=== PATIENT | male | born 1990 | race Caucasian/White ===

== ENCOUNTER 2025-09-05 15:37 | Emergency (ER) | payer OTHER, SELFPAY ==
--- NOTE | ~2025-09-05 | XR_ITS ---
EXAMINATION: XR foot RT min 3V DATE: 09/05/2025 16:02 INDICATION: Pain. Trauma today. TECHNIQUE: 4 views of right foot were obtained. COMPARISON: None. FINDINGS: No acute fracture or dislocation are seen. Normal alignment of the bones in the forefoot and midfoot. Soft tissues are unremarkable. IMPRESSION: 1. No acute bony lesions in the right foot. Symptoms persist repeat radiograph is suggested after a few days. Reviewed, dictated and finalized at location [facility] [employer]
[2025-09-05 15:51] VITALS: BP 128/62; PULSE 66; RESP 18; TEMP 36.8; O2SAT 100
--- NOTE | 2025-09-05 16:09 | ED.LOWEXIN ---
HPI - Extremity Injury (Lower) General Chief Complaint: Extremity Injury, Lower Stated Complaint: R Foot patient presents to the [facility] with complaints of pain to the top of right foot that began after accidentally running into the wall with his toes. No medication remedies attempted for symptoms. Increased pain with movement and weight-bearing. Denies numbness or tingling in foot or toes. Related Data Home Medications ?Medication ?Instructions ?Recorded ?Confirmed ?Last Taken ?Type No Home Medications 09/05/25 09/05/25 Unknown History Allergies Allergy/AdvReac Type Severity Reaction Status Date / Time No Known Allergies Allergy Verified 09/05/25 15:52 Review of Systems Constitutional: Constitutional: Reports as per HPI, Denies chills, Denies fatigue, Denies fever(s) and Denies weakness Eyes: Eyes: Reports no additional eye complaints ENT: Reports system reviewed and no additional complaints, except as documented Cardiovascular: Cardiovascular: Reports no additional cardiovascular complaints Respiratory: Respiratory: Reports no additional respiratory complaints Gastrointestinal: Gastrointestinal: Reports no additional gastrointestinal complaints Genitourinary: Genitourinary: Reports no additional male genitourinary complaints Musculoskeletal: Musculoskeletal: Reports as per HPI, Reports arthralgias, Denies joint swelling and Denies muscle cramps Integumentary/Breasts: Skin/Breast: Reports as per HPI, Denies pruritus, Denies rash and Denies skin ulcer Neurologic: Reports as per HPI, Denies numbness and Denies weakness Psychiatric: Psychiatric: Reports no additional psychiatric complaints Endocrine: Endocrine: Reports no additional endocrine complaints Hematologic/Lymphatic: Hematologic/Lymphatic: Reports no additional hematologic/lymphatic complaints Allergic/Immunologic: Allergic/Immunologic: Reports no additional allergic/immunologic complaints Exam Const: General: healthy appearing and no acute distress Nutritional Appearance: well nourished Orientation/consciousness: patient oriented x3 Limitations: no limitations Resp: Effort & Inspection: normal respiratory effort Auscultation: clear to auscultation bilaterally Cardio: Rate: regular rate Rhythm: regular rhythm Skin: General skin exam: normal color Rashes: no rashes Wounds: no wounds Neuro: General: patient oriented x3 Speech: normal speech Gait exam (Neuro): gait abnormal ( Limited by pain) Extrem: Right lower extremity: foot Details: normal capillary refill, normal to inspection, tenderness Location: of the dorsal foot, toes with normal ROM, no edema, vascular exam Details: dorsalis pedis pulse present, posterior tibial pulse present and normal capillary refill and tendon exam Details: active flexion normal and active extension normal; normal to inspection, no unusual warmth, no abrasion, no laceration, no ecchymosis, no crepitus, no foreign bodies and no puncture wound Psych: Mental Status: mental status grossly normal Affect: normal affect Attitude: cooperative Course Course Level of Care: Express Care Visit Vital Signs Vital signs: Vital Signs Temperature 98.3 F 09/05/25 15:51 Pulse Rate 66 09/05/25 15:51 Respiratory Rate 18 09/05/25 15:51 Blood Pressure 128/62 09/05/25 15:51 Pulse Oximetry 100 09/05/25 15:51 Oxygen Delivery Room Air 09/05/25 15:51 Temperature 98.3 F 09/05/25 15:51 Pulse Rate 66 09/05/25 15:51 Respiratory Rate 18 09/05/25 15:51 Blood Pressure 128/62 09/05/25 15:51 Pulse Oximetry 100 09/05/25 15:51 Oxygen Delivery Room Air 09/05/25 15:51 [facility] MDM Narrative Medical decision making narrative: x-rays completed no fracture The patient was evaluated by myself in the express care. History is obtained from patient who is an independent historian and physical exam was performed. Available medical records were reviewed at this time. Exam findings show no acute concerns or changes; patient is non-toxic appearing and is in no distress. Patient is appropriate for outpatient treatment and follow-up. I have evaluated and discussed social determinants of health with the patient that could potentially impact subsequent diagnosis and treatment plans. Differential diagnosis and treatment plan were discussed with the patient. Patient agrees with discussion and after shared medical decision making agrees with plan of care. All questions were answered to the patient's satisfaction. Differential Diagnosis Differential Diagnosis: sprain, fracture, contusion, toe fracture Medical Records I have reviewed the following patient records and this information was taken into consideration when formulating the assessment and plan.: previous labs, previous ER visits, previous hospitalizations and previous clinic visits Imaging Data Radiologist's impression: ITS Impressions Foot X-Ray 09/05/25 16:03 IMPRESSION: 1. No acute bony lesions in the right foot. Symptoms persist repeat radiograph is suggested after a few days. Discharge Plan Discharge Clinical Impression: Contusion of foot, right Patient Disposition: Home Condition: Stable Instructions: Antibiotic Form, Contusion in Adults (ED) Additional Instructions: Xray showed no fracture. Minimize activities that aggravate the condition The RICE protocol. Follow the RICE protocol as soon as possible after your injury: Rest your affected limb by not walking on it/not using this. Ice should be immediately applied to keep the swelling down. It can be used for 20 to 30 minutes, three or four times daily. Do not apply ice directly to your skin. Gentle range of motion exercises as tolerated. Compression dressings, bandages or claudia-wraps will immobilize and support your injured limb Elevate affected area above the level of your heart if possible as often as possible during the first 48 hours then as needed for increased swelling. Medication: Nonsteroidal anti-inflammatory drugs (NSAIDs) such as ibuprofen and naproxen can help control pain and swelling. Because they improve function by both reducing swelling and controlling pain, they are a better option for mild sprains than narcotic pain medicines. Please schedule a follow-up visit with your personal physician for further evaluation and treatment within 1week OR If your symptoms persist, change or worsen significantly before you can contact your personal physician then please, without delay, go to the emergency department for further evaluation. Patient Language: Luxembourger Prescriptions: No Action No Home Medications Follow-up/Referrals: Aaron Aponte MD [Primary Care Provider, Family Practice] Stand Alone Forms: Work/School Release IP Time of Disposition: 16:10
== END 2025-09-05 16:15 | disposition home or self-care (01) ==
PROVIDERS: Emergency Provider Nurse Practitioner Family; PCP Emergency Medicine
DX: S90.31XA Contusion of right foot, initial encounter (principal); W22.01XA Walked into wall, initial encounter
CPT/HCPCS: 73630; 99203; G0463